=== PATIENT | female | born 1945 | race Caucasian/White ===

== ENCOUNTER → 2017-02-05 | Outpatient (CLI) | payer MEDICARE, BC ==
[~2017-02-05] MED LIST: ACET500T67 PO; ALBU18HF2 INH; ARFO15VI3 AEROSOL; ASPI-558 PO; BUSP15TA3 PO; DOCU-118 PO; GABA-338 PO; LISI-114 PO; METO-104 PO; NITR0.4T38 SL; PRAV40TA46 PO; RANI-198 PO; [UNRECOGNIZED DRUG - OTHER] PO
== END ==
LOC: WC.BC 13:44
PROVIDERS: ATTEND Internal Medicine
DX: N64.59 Other signs and symptoms in breast (principal); R92.8 Other abnormal and inconclusive findings on diagnostic imaging of breast
CPT/HCPCS: G0206; G0279

== ENCOUNTER → 2017-02-17 | Outpatient (CLI) | payer MEDICARE, BC ==
[~2017-02-17] MED LIST changes: +GADOBUTROL 10mMol/10ml INJECTION IV ONE; +NORMAL SALINE 50 ML IV ONE; +SALINE FLUSH 10ml SYRINGE ONE
--- NOTE | 2017-02-18 08:33 | DI ---
Indication: ITS.REASON: R42 VERTIGO; R51 MOORE PROCEDURE: MRA NECK W/WO CONTRAST: Comparison: None Technique: MRA imaging of the neck with and without contrast was acquired. Maximum intensity projection (MIP) reformatted images were produced. Contrast: 10 mL Gadavist Findings: The carotid bifurcations are widely patent bilaterally with normal flow-related enhancement within the common carotid, internal carotid, and external carotid arteries. The vertebral arteries are normal in size without evidence of significant stenosis. Left vertebral artery is slightly dominant. Impression: Unremarkable MRA of the neck with and without contrast. No stenosis by NASCET criteria. .
--- NOTE | 2017-02-18 16:33 | DI ---
Indication: ITS.REASON: R42 VERTIGO; R51 MOORE PROCEDURE: MRI BRAIN W/WO CONTRAST: And MRA head without contrast Encounter: Initial Comparison: None Technique: Multiplanar, multisequence, MR imaging of the head with and without contrast was acquired. MRA imaging of the head without contrast was acquired. Maximum intensity projection (MIP) reformatted images were produced. 3-dimensional volume rendered imaging of the false pass of [place] was performed by the technologist on a dedicated workstation. Contrast: 10 mL of Gadavist Findings: Mild motion artifact on some of the sequences. MRI head: Mild generalized atrophy. Extra-axial CSF collection in the right middle cranial fossa measuring 3.2 x 1.8 cm on axial image #8 consistent with an arachnoid cyst. Prominent perivascular spaces noted in both basal ganglia, left greater than right. The ventricles are of normal size, shape, and contour for the patient's age. There are small nonspecific punctate areas of T2-weighted and T2 FLAIR weighted signal abnormality in the deep frontoparietal white matter that most likely represent small vessel ischemic disease. This is of a degree that is considered to be normal for the patient's age. The brain stem, cerebellum, and cerebral hemispheres otherwise have a normal morphologic appearance as well as MR signal intensity on all pulse sequences. Following intravenous administration of contrast, no areas of abnormal enhancement are evident. There are no areas of restricted diffusion on diffusion weighted imaging to suggest an acute infarct. There is no evidence of an intracranial mass lesion, intracranial hemorrhage, or hydrocephalus. The visualized portions of the orbits, calvarium, paranasal sinuses, and skull base demonstrate no significant abnormality. MRA head: The intracranial portions of the vertebral arteries, internal carotid arteries, and their major branches show no significant stenosis or other vascular anomaly. No aneurysms or vascular malformations are evident. Impression: 1. MRI head: Small right middle cranial fossa arachnoid cyst, otherwise unremarkable appearance of the brain for age. 2. MRA head: No evidence of aneurysm or flow-limiting arterial stenosis. .
== END ==
LOC: IMA 16:24
PROVIDERS: ATTEND Internal Medicine
DX: G93.0 Cerebral cysts (principal); R42 Dizziness and giddiness; R51 Headache
CPT/HCPCS: 70544; 70549; 70553; A9585; J7050

== ENCOUNTER 2017-03-28 15:29 | Emergency (ER) | payer MEDICARE, BC ==
[~2017-03-28] VITALS: Ht 162.6 cm; Wt 80.0 kg
[~2017-03-28 15:29] MED LIST changes: -GADOBUTROL 10mMol/10ml INJECTION IV ONE; -NORMAL SALINE 50 ML IV ONE; -SALINE FLUSH 10ml SYRINGE ONE
--- OUTSIDE RECORDS SUMMARY | 2017-03-28 15:33 | XMS REPORT ---
Author Author Brian Gibbons Organization [employer] Address Unknown Phone Unavailable Care Team Providers Care Contract Modeler Name Role Phone Brian Gibbons CP Unavailable Allergies No Known Allergies Problems Problem Type Condition Code Onset Dates Condition Status Problem Coronary atherosclerosis of [place] coronary artery 414.01 Active Problem Other and unspecified hyperlipidemia 272.4 Active Problem Mixed hyperlipidemia E78.2 Active Problem Other hyperlipidemia E78.4 Active Problem Atherosclerotic heart disease of [place] coronary artery without angina pectoris I25.10 Active Problem Essential (primary) hypertension I10 Active Medications Medication Code System Code Instructions Start Date End Date Status Dosage Ventolin HFA [facility] [address]-99 108 (90 Base) MCG/ACT Inhalation twice a day as needed Nov 30, 2015 2 puffs as needed Results No Known Results Summary Purpose eClinicalWorks Submission
--- OUTSIDE RECORDS SUMMARY | 2017-03-28 15:33 | XMS REPORT | Referral Summary ---
Author Author [facility] Organization [facility] Address Unknown Phone Unavailable Care Team Providers Care Waiter/Waitress Bar Name Role Phone Stephanie Leggett Primary Care Physician [phone] Encounter VC Date(s): 04/20/15 - 04/20/15 [facility] [address], [address] [address] Discharge Diagnosis: Obstructive sleep apnea Discharge Disposition: 01-Home or Self Care Attending Physician: Magdaleno Farmer MD Admitting Physician: Magdaleno Farmer MD Vital Signs Most recent to 1 oldest [Reference Range]: Peripheral Pulse 69 bpm Rate [60-100 bpm] (04/20/15 9:59 AM) Blood Pressure 118/72 mmHg [90-140/60-90 mmHg] (04/20/15 9:59 AM) SpO2 94 % (04/20/15 9:59 AM) Problem List Condition Effective Dates Status Health Status Informant Dermatophytosis of Active nail(Confirmed)1 Morbid Active patient obesity(Confirmed) Obstructive sleep Active apnea(Confirmed) Pain in Active limb(Confirmed)2 Restless leg Active syndrome(Confirmed) 1see conversion document. 2see conversion document. Allergies, Adverse Reactions, Alerts No Known Medication Allergies Medications acetaminophen 325 mg, Oral, Daily, 0 Refill(s) Start Date: 04/15/14 Status: Ordered albuterol 0.083 %, use daily as needed for shortness of breath, 0 Refill(s) Start Date: 04/25/14 Status: Ordered Aspir 81 81 mg, Oral, Daily, 0 Refill(s) Start Date: 04/15/14 Status: Ordered Brovana 15 mcg/2 mL inhalation solution 1 Each, NEB, BID, # 60 Each, 0 Refill(s) Start Date: 04/25/14 Status: Ordered budesonide 0.5 mg/2 mL inhalation suspension 2 mL, NEB, BID, # 120 mL, 0 Refill(s) Start Date: 04/25/14 Status: Ordered busPIRone 15 mg, Oral, Daily, 0 Refill(s) Start Date: 04/15/14 Status: Ordered citalopram 20 mg oral tablet tabs, Oral, Daily, 0 Refill(s) Start Date: 09/01/14 Status: Ordered Colace 50 mg, Oral, TID, 0 Refill(s) Start Date: 04/15/14 Status: Ordered CPAP Machine (DME) See Instructions, # 1 Each, 0 Refill(s), Supply Start Date: 04/15/14 Status: Ordered cyanocobalamin 1,00 mcg/mL inject 0.1 Milliliter every month, 0 Refill(s) Start Date: 04/15/14 Status: Ordered gabapentin 300 mg oral capsule 1 caps, Oral, Daily, 0 Refill(s) Start Date: 04/15/14 Status: Ordered Home Oxygen (DME) DME Item O2@2LPM at bedtime., See Instructions, # 1 Each, 0 Refill(s), Supply Start Date: 07/21/14 Status: Ordered lisinopril 5 mg oral tablet 1 tabs, Oral, Daily, 0 Refill(s) Start Date: 04/15/14 Status: Ordered metoprolol succinate 100 mg, Oral, Daily, 0 Refill(s) Start Date: 04/15/14 Status: Ordered nitroglycerin 0.4 mg sublingual tablet 1 tabs, SubLingual, q5min, as needed for chest pain, # 100 tabs, 0 Refill(s) Start Date: 04/15/14 Status: Ordered Non-Formulary Med calcio madeleine 500mg take 1 BID, 0 Refill(s) Start Date: 04/15/14 Status: Ordered pravastatin 40 mg oral tablet 1 tabs, Oral, Daily, # 30 tabs, 0 Refill(s) Start Date: 04/15/14 Status: Ordered Probiotic Formula 1 caps, Oral, Daily, 0 Refill(s) Start Date: 04/15/14 Status: Ordered ranitidine 300 mg oral tablet tabs, Oral, BID, 0 Refill(s) Start Date: 04/15/14 Status: Ordered Requip See Instructions, 1 mg TID and 2 mg at bedtime., 0 Refill(s) Start Date: 04/15/14 Status: Ordered Vitamin B Complex oral tablet 1 tabs, Oral, BID, 0 Refill(s) Start Date: 04/15/14 Status: Ordered Vitamin D with Minerals oral tablet 1 tabs, Oral, Daily, # 30 tabs, 0 Refill(s) Start Date: 09/01/14 Status: Ordered Results No data available for this section Immunizations Vaccine Date Refusal Reason hepatitis A adult vaccine 02/19/01 hepatitis A adult vaccine 08/22/00 Procedures No data available for this section Social History Social History Type Response Smoking Status Former smoker; Type: Cigarettes; Tobacco use per day: 1 Pack ; Number of years: 30 Assessment and Plan Extracted from: Title: Office Visit Note Author: Magdaleno Farmer MD Date: 04/20/15 Assessment/Plan Obstructive sleep apnea Impression: Obstructive sleep apnea syndrome, doing well on current pressure of 9 cm. The patient has no significant hypoxemia at this level supplemental oxygen is not indicated based on her night in the sleep laboratory. Plan: We reviewed her study, as well as her compliance download. She will continue CPAP at current level. At her request, an order to discontinue oxygen is written. She will return in a year, sooner if need be. Referrals to Other Providers Referred by: Magdaleno Farmer MD
--- OUTSIDE RECORDS SUMMARY | 2017-03-28 15:33 | XMS REPORT ---
Author Author Brian Gibbons Organization [employer] Address Unknown Phone Unavailable Care Team Providers Care Cruller Maker Machine Name Role Phone Brian Gibbons CP Unavailable Allergies, Adverse Reactions, Alerts Substance Reaction Event Type Asmax inhalor Flu like symptoms nausea dizziness Non Drug Allergy Problems Problem Type Condition Code Onset Dates Condition Status Problem Other hyperlipidemia E78.4 Active Problem Atherosclerotic heart disease of [place] coronary artery without angina pectoris I25.10 Active Problem Essential (primary) hypertension I10 Active Problem Hyperlipidemia, unspecified E78.5 Active Problem Major depressive disorder, single episode, unspecified F32.9 Active Problem Restless legs syndrome G25.81 Active Problem Coronary atherosclerosis of [place] coronary artery 414.01 Active Problem Other and unspecified hyperlipidemia 272.4 Active Problem Chronic obstructive pulmonary disease, unspecified J44.9 Active Problem Mixed hyperlipidemia E78.2 Active Assessment Inconclusive mammogram R92.2 Active Assessment Benign paroxysmal vertigo, unspecified ear H81.10 Active Assessment Restless legs syndrome G25.81 Active Assessment Other chest pain R07.89 Active Assessment Encounter for immunization Z23 Active Assessment Atherosclerotic heart disease of [place] coronary artery without angina pectoris I25.10 Active Medications Medication Code System Code Instructions Start Date End Date Status Dosage BuSpar NDC 0 15 mg orally Twice every day 1 Citalopram Hydrobromide [facility] [address]-98 40 MG Orally Once a day 1 tablet Calcium + D [facility] [address]-19 600-200 MG-UNIT Orally Once a day 3 Tablet with food Gabapentin [facility] [address]-00 300 MG Orally daily 1 capsule Brovana [facility] [address]-06 15 MCG/2ML Inhalation Twice a day 2 ml Lisinopril [facility] [address]-12 5 MG Orally Once a day 1 tablet Meclizine HCl [facility] [address]-04 25 MG Orally every 12 hours Sep 11, 2016 1 capsule as needed for vertigo symptoms. Metoprolol Succinate ER [facility] [address]-94 100 MG Orally Once a day 1 tablet Albuterol Sulfate HFA [facility] [address]-54 108 (90 Base) MCG/ACT Inhalation every 4 hrs 2 puffs as needed Colace [facility] [address]-98 50 MG Orally Once a day 2 capsule as needed Ranitidine HCl [facility] [address]-02 300 MG Orally Twice a day Sep 13, 2015 1 tablet Requip [facility] [address]-25 2 MG Orally Three times a day 1 tablet Aspir-81 [facility] [address]-65 81 MG Orally Once a day 1 tablet Procedures Procedure Coding System Code Date OFFICE VISIT, EST-LOW COMPLEXITY (15 MIN.) CPT-4 38008 Sep 11, 2016 [facility] visit Established Patient CPT-4 G0467 Sep 11, 2016 Vital Signs Date/Time: Sep 11, 2016 Temperature 98.2 F Height 65 in Weight 182 lbs Blood Pressure Diastolic 80 mm Hg Blood Pressure Systolic 122 mm Hg Cardiac Monitoring Heart Rate 67 /min BMI 30.28 Index Oximetry 97 % Respiratory Rate 16 /min Results No Known Results Summary Purpose eClinicalWorks Submission
--- OUTSIDE RECORDS SUMMARY | 2017-03-28 15:33 | XMS REPORT ---
Author Author Brian Gibbons Organization [employer] Address Unknown Phone Unavailable Care Team Providers Care Aerospace Project Manager Name Role Phone Brian Gibbons CP Unavailable Allergies No Known Allergies Problems Problem Type Condition Code Onset Dates Condition Status Problem Essential (primary) hypertension I10 Active Problem Other hyperlipidemia E78.4 Active Problem Major depressive disorder, single episode, unspecified F32.9 Active Problem Chronic obstructive pulmonary disease, unspecified J44.9 Active Problem Hyperlipidemia, unspecified E78.5 Active Problem Other and unspecified hyperlipidemia 272.4 Active Problem Atherosclerotic heart disease of [place] coronary artery without angina pectoris I25.10 Active Problem Mixed hyperlipidemia E78.2 Active Problem Coronary atherosclerosis of [place] coronary artery 414.01 Active Medications No Known Medications Results No Known Results Summary Purpose eClinicalWorks Submission
--- OUTSIDE RECORDS SUMMARY | 2017-03-28 15:33 | XMS REPORT | Referral Summary ---
Author Author [facility] Organization [facility] Address Unknown Phone Unavailable Care Team Providers Care Flange Machine Operator Name Role Phone Stephanie Leggett Primary Care Physician [phone] Encounter VC Date(s): 04/06/15 - 04/06/15 [facility] [address], [address] [address] Discharge Disposition: 01-Home or Self Care Attending Physician: Magdaleno Farmer MD Admitting Physician: Magdaleno Farmer MD Referring Physician: Jann Leggett APRN Vital Signs No data available for this section Problem List Condition Effective Dates Status Health [...] tabs, Oral, BID, 0 Refill(s) Start Date: 6/6/14 Status: Ordered Vitamin D with Minerals oral [...] 30 Assessment and Plan Extracted from: Title: CPAP adjust pressure to 9cm Author: Siria Fajardo BLACK BELT Date: 04/06/[address] Farmer pressure change per verbal order/ Dr Farmer patient has an S10 cpap
--- OUTSIDE RECORDS SUMMARY | 2017-03-28 15:33 | XMS REPORT | Continuity of Care Document ---
Author Author [facility] Organization [facility] Address Unknown Phone Unavailable Allergies Medications Problems Procedures Results Encounters ACCT No. Visit Date/Time Discharge Status Pt. Type Provider Facility Loc./Unit Complaint [id number] 11/22/2013 13:59:00 11/22/2013 23 :59:59 [facility] Outpatient
--- OUTSIDE RECORDS SUMMARY | 2017-03-28 15:33 | XMS REPORT ---
Author Author Carmelina Lara [facility] eClinicalWorks Address Unknown Phone Unavailable Care Team Providers Care Glass Smoother Name Role Phone Carmelina Lara CP Unavailable Allergies No Known Allergies Problems Problem Type Condition Code Onset Dates Condition Status Problem Other and unspecified hyperlipidemia 272.4 Active Problem Atherosclerotic heart disease of [place] coronary artery without angina pectoris I25.10 Active Problem Coronary atherosclerosis of [place] coronary artery 414.01 Active Problem Essential (primary) hypertension I10 Active Problem Other hyperlipidemia E78.4 Active Medications Medication Code System Code Instructions Start Date End Date Status Dosage Metoprolol Succinate ER [facility] [address]-04 100 MG Orally Once a day 1 tablet Results No Known Results Summary Purpose eClinicalWorks Submission
--- OUTSIDE RECORDS SUMMARY | 2017-03-28 15:33 | XMS REPORT | Referral Summary ---
Author Author [facility] Organization [facility] Address Unknown Phone Unavailable Care Team Providers Care Contracts Advisor Name Role Phone BenitaScotty montero Primary Care Physician [phone] Encounter VC Date(s): 12/02/16 - 12/02/16 [facility] [address] [place] [address] Discharge Disposition: 01-Home or Self Care Attending Physician: Jaxon Bartlett MD, D, ABSM Vital Signs No data available for this section Problem List Condition Effective Dates Status Health Status Informant Anxiety(Confirmed) Active IBS (irritable bowel Active syndrome)(Confirmed) Dermatophytosis of Active nail(Confirmed)1 GERD Active (gastroesophageal reflux disease)(Confirmed) Myocardial 2009 Active infarct(Confirmed) Depression(Confirmed Active ) Morbid Active patient obesity(Confirmed) Obstructive sleep Active apnea(Confirmed) Pain in Active limb(Confirmed)2 Restless leg Active syndrome(Confirmed) 1see conversion document. 2see conversion document. Allergies, Adverse Reactions, Alerts Substance Reaction Severity Status Asmanex HFA nausea, dizziness, leg pain Active Medications acetaminophen 325 mg, Oral, Daily, 0 [...] No data available for this section Immunizations Given and Recorded Vaccine Date Status Refusal Reason hepatitis A adult vaccine 02/19/01 Recorded hepatitis A adult vaccine 08/22/00 Recorded Procedures Procedure Date Related Diagnosis Body Site Colonoscopy normal1 06/24/16 Hx of cardiac catheterization2 2008 Appendectomy 1Sigmoid diverticulosis. Will not need to repeat due to advancing age 2with stents Social History Social History Type Response Smoking Status Former smoker; Type: Cigarettes; Tobacco use per day: 1 Pack ; Number of years: 30 Assessment and Plan No data available for this section
--- OUTSIDE RECORDS SUMMARY | 2017-03-28 15:33 | XMS REPORT ---
Author Author Carmelina Lara [facility] eClinicalWorks Address Unknown Phone Unavailable Care Team Providers Care Customs Guard Name Role Phone Carmelina Lara CP Unavailable Allergies No Known Allergies Problems Problem Type Condition ICD-9 Code Onset Dates Condition Status Problem Unspecified essential hypertension 401.9 Active Problem Other and unspecified hyperlipidemia 272.4 Active Problem Coronary atherosclerosis of [place] coronary artery 414.01 Active Medications No Known Medications Results No Known Results Summary Purpose eClinicalWorks Submission
--- OUTSIDE RECORDS SUMMARY | 2017-03-28 15:34 | XMS REPORT ---
Author Author Carmelina Lara [facility] e[employer] Address Unknown Phone Unavailable Care Team Providers Care Warehouse Shipping Supervisor Name Role Phone Carmelina Lara CP Unavailable Allergies No Known Allergies Problems Problem Type Condition ICD-9 Code Onset Dates Condition Status Problem Unspecified essential hypertension 401.9 Active Problem Other and unspecified hyperlipidemia 272.4 Active Problem Coronary atherosclerosis of [place] coronary artery 414.01 Active Medications No Known Medications Results No Known Results Summary Purpose eClinicalWorks Submission
--- OUTSIDE RECORDS SUMMARY | 2017-03-28 15:34 | XMS REPORT ---
Author Author Brian Gibbons Organization [employer] Address Unknown Phone Unavailable Care Team Providers Care Chief Environmental Commitment Officer Name Role Phone Brian Gibbons CP Unavailable Allergies, Adverse Reactions, Alerts Substance Reaction Event Type N.K.D.A. Info Not Available Non Drug Allergy Problems Problem Type Condition Code Onset Dates Condition Status Assessment Insect bite (nonvenomous) of lower back and pelvis, initial encounter S30.860A Active Problem Essential (primary) hypertension I10 Active Problem Other hyperlipidemia E78.4 Active Problem Major depressive disorder, single episode, unspecified F32.9 Active Problem Chronic obstructive pulmonary disease, unspecified J44.9 Active Problem Hyperlipidemia, unspecified E78.5 Active Problem Other and unspecified hyperlipidemia 272.4 Active Problem Atherosclerotic heart disease of [place] coronary artery without angina pectoris I25.10 Active Problem Mixed hyperlipidemia E78.2 Active Problem Coronary atherosclerosis of [place] coronary artery 414.01 Active Medications Medication Code System Code Instructions Start Date End Date Status Dosage Citalopram Hydrobromide [facility] [address]-93 40 MG Orally Once a day 1 tablet Metoprolol Succinate ER [facility] [address]-44 100 MG Orally Once a day 1 tablet Ranitidine HCl [facility] [address]-98 300 MG Orally Twice a day Sep 13, [address] [facility] [address]-66 1 % Externally Twice a day Jul 12, 2016 1 application to affected area on back. use small amount. Colace [facility] [address]-66 50 MG Orally Once a day 2 capsule as needed Aspir-[address] [facility] [address]-95 81 MG Orally Once a day [address] [facility] [address]-21 300 MG Orally daily 1 capsule BuSpar ND 0 15 mg orally Twice every day 1 Calcium + D [facility] [address]-87 600-200 MG-UNIT Orally Once a day 4 tablet with food Pravastatin Sodium [facility] [address]-52 40 MG Orally Once a day [address] [facility] [address]-29 2 MG Orally Three times a day 1 tablet Albuterol Sulfate HFA [facility] [address]-21 108 (90 Base) MCG/ACT Inhalation every 4 hrs 2 puffs as needed Lisinopril [facility] [address]-52 5 MG Orally Once a day [address] [facility] [address]-96 15 MCG/2ML Inhalation Twice a day 2 ml Procedures Procedure Coding System Code Date OFFICE VISIT, EST-LOW COMPLEXITY (15 MIN.) CPT-4 19831 Jul 12, 2016 [facility] visit Established Patient CPT-4 G0467 Jul 12, 2016 Vital Signs Date/Time: Jul 12, 2016 Temperature 97.0 F Height 65 in Weight 181.8 lbs Blood Pressure Diastolic 80 mm Hg Blood Pressure Systolic 140 mm Hg Cardiac Monitoring Heart Rate 60 /min BMI 30.25 Index Oximetry 96 % Respiratory Rate 16 /min Results No Known Results Summary Purpose eClinicalWorks Submission
--- OUTSIDE RECORDS SUMMARY | 2017-03-28 15:34 | XMS REPORT | Continuity of Care Document ---
Author Author Zachary Prather DPM, VC Ambulatory Address [address] [facility] [place] [address] Phone Care Team Providers Care Clock Repair Technician Name Role Phone Jann Leggett PP Unavailable Payers Payer name Insurance type Covered alliance party ID Authorization(s) Unknown Problems Condition Effective Dates (start - stop) Clinical Status Dermatophytosis of nail - *Chronic Pain in limb - *Chronic Sleep Apnea, Obstructive - *Poor control Dermatophytosis of nail - *Chronic Pain in limb - *Chronic DERMATOPHYTOSIS OF NAIL - PAIN IN LIMB - Dermatophytosis of nail - *Chronic Pain in limb - *Chronic Sleep Apnea, Obstructive - *Controlled Dermatophytosis of nail - *Chronic Pain in limb - *Chronic Dermatophytosis of nail - *Chronic Pain in limb - *Chronic Dermatophytosis of nail - *Chronic Pain in limb - *Chronic Dermatophytosis of nail - *Chronic Pain in limb - *Chronic Diabetes Mellitus Type 2, Uncomplicated - *Controlled Family History Family Member Diagnosis Age At Onset Status Unknown Social History Social History Element Description Quantity Unknown Allergies, Adverse Reactions, Alerts Substance Reaction Severity Status Unknown Medications Medication Instructions Dosage Effective Dates (start - stop) Status Colace 50 mg capsule take 1 Capsule by oral route 3 times every day as needed 50 MG - Active Vitamin B Complex tablet take 1 by Oral route 2 times every day 0 2011 - Active calcium 500 mg tablet take 1 by Oral route 2 times every day 0 - Active lisinopril 5 mg tablet take 1 tablet (5MG) by oral route every day 5 MG - Active pravastatin 40 mg tablet take 1 tablet (40MG) by oral route every day 40 MG - Active gabapentin 300 mg capsule take 1 capsule (300MG) by oral route 2 times every day 300 MG - Active Vitamin B-12 1,000 mcg/mL injection solution inject 0.1 milliliter (100MCG) by intramuscular route every month 100 MCG - Active ranitidine 300 mg tablet take 1 tablet (300MG) by oral route 2 times every day 300 MG - Active Tylenol 325 mg tablet take 1 by Oral route every day as needed 0 2011 - Active nitroglycerin 0.[address] 1 tablet (0.4MG) by sublingual route at the 1st sign of attack; may repeat every 5 min until relief; if pain persists after 3 tablets in 15 min, prompt medical attention is recommended 0.4 MG - Active Probiotic 10 billion cell capsule take 1 by Oral route every bedtime 0 - Active Aspir-81 81 mg tablet,delayed release take 1 tablet (81MG) by oral route every day 81 MG - Active metoprolol succinate ER 100 mg tablet,extended release 24 hr take 1 tablet ( 100MG) by oral route every day 100 MG - Active inhale 13 CM by Nasal route every bedtime 0 - Active Requip 0.25 mg tablet apply 1 - 2 by Ophthalmic route every day as directed 0 - Active buspirone 15 mg tablet take 1 tablet (15MG) by oral route every day as directed 15 MG - Active Immunizations Vaccine Date Status Comments Unknown Results Test Name Date and Time Measure Units Reference Range Abnormal Flag Comments Unknown Vital Signs Date / Time: Height Weight Pulse Rate Blood Pressure Temperature Unknown Procedures Procedure Date Unknown Encounters Encounter Location Date Patient Visit [facility] New Pod Patient Visit [facility] New Pod Patient Visit [facility] Patient Visit [facility] New Pod Patient Visit Conversion Patient Visit [facility] New Pod Patient [facility] Patient Visit [facility] New Pod Patient Visit [facility] New Pod Patient Visit [facility] New Pod Patient Visit [facility] New Pod Advance Directives Directive Effective Date Unknown
--- OUTSIDE RECORDS SUMMARY | 2017-03-28 15:34 | XMS REPORT ---
Author Author Brian Gibbons Organization eClinical[employer] Address Unknown Phone Unavailable Care Team Providers Care Pruner Name Role Phone Brian Gibbons CP Unavailable Allergies No Known Allergies Problems Problem Type Condition Code Onset Dates Condition Status Problem Coronary atherosclerosis of [place] coronary artery 414.01 Active Problem Other and unspecified hyperlipidemia 272.4 Active Problem Mixed hyperlipidemia E78.2 Active Problem Other hyperlipidemia E78.4 Active Problem Atherosclerotic heart disease of [place] coronary artery without angina pectoris I25.10 Active Problem Essential (primary) hypertension I10 Active Medications No Known Medications Results No Known Results Summary Purpose eClinicalWorks Submission
--- OUTSIDE RECORDS SUMMARY | 2017-03-28 15:34 | XMS REPORT ---
Author Author Carmelina Lara [facility] eClinicalWorks Address Unknown Phone Unavailable Care Team Providers Care Beauty Culture Teacher Name Role Phone Carmelina Lara CP Unavailable Allergies No Known Allergies Problems Problem Type Condition ICD-9 Code Onset Dates Condition Status Assessment Restless legs syndrome [RLS] 333.94 Active Problem Unspecified essential hypertension 401.9 Active Problem Other and unspecified hyperlipidemia 272.4 Active Problem Coronary atherosclerosis of [place] coronary artery 414.01 Active Assessment Anxiety state, unspecified 300.00 Active Assessment Other and unspecified hyperlipidemia 272.4 Active Assessment Coronary atherosclerosis of [place] coronary artery 414.01 Active Assessment Unspecified essential hypertension 401.9 Active Medications No Known Medications Procedures Procedure Coding System Code Date COMPLETE CBC W/AUTO DIFF WBC CPT-4 73415 Aug 02, 2015 COMPREHENSIVE METABOLIC PANEL CPT-4 02381 Aug 02, 2015 Results No Known Results Summary Purpose eClinicalWorks Submission
--- OUTSIDE RECORDS SUMMARY | 2017-03-28 15:34 | XMS REPORT ---
Author Author Carmelina Lara [facility] eClinical[employer] Address Unknown Phone Unavailable Care Team Providers Care Feltmaker And Weigher Name Role Phone Carmelina Lara CP Unavailable Allergies No Known Allergies Problems Problem Type Condition Code Onset Dates Condition Status Problem Other and unspecified hyperlipidemia 272.4 Active Problem Atherosclerotic heart disease of [place] coronary artery without angina pectoris I25.10 Active Problem Coronary atherosclerosis of [place] coronary artery 414.01 Active Problem Essential (primary) hypertension I10 Active Problem Other hyperlipidemia E78.4 Active Medications Medication Code System Code Instructions Start Date End Date Status Dosage Metoprolol Succinate ER [facility] [address]-44 100 MG Orally Once a day 1 tablet Results No Known Results Summary Purpose eClinicalWorks Submission
--- OUTSIDE RECORDS SUMMARY | 2017-03-28 15:34 | XMS REPORT ---
Author Author Brian Gibbons Organization eClinical[employer] Address Unknown Phone Unavailable Care Team Providers Care Industrial Conveyor Belt Repairer Name Role Phone Brian Gibbons CP Unavailable Allergies No Known Allergies Problems Problem Type Condition Code Onset Dates Condition Status Assessment Dizziness and giddiness R42 Active Problem Essential (primary) hypertension I10 Active Problem Other hyperlipidemia E78.4 Active Assessment Hyperlipidemia, unspecified E78.5 Active Assessment Essential (primary) hypertension I10 Active Problem Major depressive disorder, single episode, unspecified F32.9 Active Problem Chronic obstructive pulmonary disease, unspecified J44.9 Active Problem Hyperlipidemia, unspecified E78.5 Active Problem Other and unspecified hyperlipidemia 272.4 Active Problem Atherosclerotic heart disease of [place] coronary artery without angina pectoris I25.10 Active Problem Mixed hyperlipidemia E78.2 Active Problem Coronary atherosclerosis of [place] coronary artery 414.01 Active Medications Medication Code System Code Instructions Start Date End Date Status Dosage Pravastatin Sodium [facility] [address]-76 40 MG Orally Once a day 1 tablet Ventolin HFA [facility] [address]-11 108 (90 Base) MCG/ACT Inhalation twice a day as needed Nov 30, 2015 2 puffs as needed Requip [facility] [address]-72 2 MG Orally Three times a day 1 tablet Citalopram Hydrobromide [facility] [address]-95 40 MG Orally Once a day 1 tablet Asmanex 120 Metered Doses [facility] [address]-09 220 MCG/INH Inhalation Once a day April 03, 2016 Jul 30, 2016 1 puff in the evening Calcium + D [facility] [address]-22 600-200 MG-UNIT Orally Once a day 4 tablet with food Gabapentin [facility] [address]-49 300 MG Orally daily 1 capsule Ranitidine HCl [facility] [address]-97 300 MG Orally Twice a day Sep 13, 2015 1 tablet Metoprolol Succinate ER [facility] [address]-62 100 MG Orally Once a day 1 tablet Albuterol Sulfate HFA [facility] [address]-46 108 (90 Base) MCG/ACT Inhalation every 4 hrs 2 puffs as needed Brovana [facility] [address]-74 15 MCG/2ML Inhalation Twice a day 2 ml BuSpar NDC 0 15 mg orally Twice every day 1 Colace [facility] [address]-03 50 MG Orally Once a day 2 capsule as needed Aspir-81 [facility] [address]-51 81 MG Orally Once a day 1 tablet Lisinopril [facility] [address]-73 5 MG Orally Once a day 1 tablet Procedures Procedure Coding System Code Date URINALYSIS WITH MICROSCOPIC CPT-4 81521 June 03, 2016 IH CMP CPT-4 84903 June 03, 2016 COMPLETE CBC W/AUTO DIFF WBC CPT-4 31656 June 03, 2016 LIPID PANEL CPT-4 13327 June 03, 2016 Results No Known Results Summary Purpose eClinicalWorks Submission
--- OUTSIDE RECORDS SUMMARY | 2017-03-28 15:34 | XMS REPORT ---
Author Author Brian Gibbons Organization eClinicalWorks Address Unknown Phone Unavailable Care Team Providers Care Investment Officer Name Role Phone Brian Gibbons CP Unavailable Allergies, Adverse Reactions, Alerts Substance Reaction Event Type Asmax inhalor Flu like symptoms nausea dizziness Non Drug Allergy Problems Problem Type Condition Code Onset Dates Condition Status Assessment Inconclusive mammogram R92.2 Active Problem Essential (primary) hypertension I10 Active Problem Other hyperlipidemia E78.4 Active Problem Major depressive disorder, single episode, unspecified F32.9 Active Problem Chronic obstructive pulmonary disease, unspecified J44.9 Active Problem Hyperlipidemia, unspecified E78.5 Active Problem Other and unspecified hyperlipidemia 272.4 Active Problem Atherosclerotic heart disease of [place] coronary artery without angina pectoris I25.10 Active Problem Mixed hyperlipidemia E78.2 Active Problem Coronary atherosclerosis of [place] coronary artery 414.01 Active Medications Medication Code System Code Instructions Start Date End Date Status Dosage Citalopram Hydrobromide [facility] [address]-98 40 MG Orally Once a day 1 tablet BuSpar ND 0 15 mg orally Twice every day 1 Metoprolol Succinate ER [facility] [address]-75 100 MG Orally Once a day 1 tablet Gabapentin [facility] [address]-08 300 MG Orally daily 1 capsule Colace [facility] [address]-73 50 MG Orally Once a day 2 capsule as needed Aspir-81 [facility] [address]-65 81 MG Orally Once a day 1 tablet Lisinopril [facility] [address]-11 5 MG Orally Once a day 1 tablet Brovana [facility] [address]-94 15 MCG/2ML Inhalation Twice a day 2 ml Calcium + D [facility] [address]-41 600-200 MG-UNIT Orally Once a day 4 tablet with food Requip [facility] [address]-73 2 MG Orally Three times a day 1 tablet Ranitidine HCl [facility] [address]-09 300 MG Orally Twice a day Sep 13, 2015 1 tablet Albuterol Sulfate HFA [facility] [address]-28 108 (90 Base) MCG/ACT Inhalation every 4 hrs 2 puffs as needed Procedures Procedure Coding System Code Date OFFICE VISIT, EST-LOW COMPLEXITY (15 MIN.) CPT-4 88881 Jul 24, 2016 [facility] visit Established Patient CPT-4 G0467 Jul 24, 2016 Vital Signs Date/Time: Jul 24, 2016 Temperature 97.7 F Height 65 in Weight 182.7 lbs Blood Pressure Diastolic 64 mm Hg Blood Pressure Systolic 128 mm Hg Cardiac Monitoring Heart Rate 62 /min BMI 30.40 Index Oximetry 98 % Results No Known Results Summary Purpose eClinicalWorks Submission
--- OUTSIDE RECORDS SUMMARY | 2017-03-28 15:34 | XMS REPORT ---
Author Author Brian Gibbons Organization eClinicalWorks Address Unknown Phone Unavailable Care Team Providers Care Laboratory Technical Specialist Name Role Phone Brian Gibbons CP Unavailable [...] 272.4 Active Problem Atherosclerotic heart disease of [place] coronary artery without angina pectoris I25.10 Active Problem Mixed hyperlipidemia E78.2 Active Problem Coronary atherosclerosis of [place] coronary artery 414.01 Active Medications No Known Medications Results No Known Results Summary Purpose eClinicalWorks Submission
--- OUTSIDE RECORDS SUMMARY | 2017-03-28 15:34 | XMS REPORT | Referral Summary ---
Author Organization Unknown Address Unknown Phone Unavailable Care Team Providers Care Dance Coach Name Role Phone Stephanie Leggett Primary Care Physician [phone] Encounter VC Date(s): 12/22/14 - 12/22/14 [facility] [place] [address], [facility] [address] [place], [place] [address] Discharge Disposition: Home or Self Care Attending Physician: Abby Pack Admitting Physician: Abby Pack Referring Physician: Jann Leggett APRN Vital Signs Most recent to 1 oldest [Reference Range]: Peripheral Pulse 61 bpm Rate [60-100 bpm] (12/22/14 1:50 PM) Blood Pressure 140/76 mmHg [90-140/60-90 mmHg] (12/22/14 1:50 PM) Most recent to 1 oldest [Reference Range]: SpO2 99 % (12/22/14 1:50 PM) Problem List Condition Effective Dates Status Health Status Informant Dermatophytosis of Active nail(Confirmed)1 Morbid Active patient obesity(Confirmed) Obstructive sleep Active apnea(Confirmed) Pain in Active limb(Confirmed)2 1see conversion document. 2see conversion document. Allergies, Adverse Reactions, Alerts No Known Medication Allergies Medications acetaminophen 325 mg, Oral, Daily, 0 Refill(s) Start Date: 04/15/14 Status: Ordered albuterol 0.083 %, use daily as needed for shortness of breath, 0 Refill(s) Special Instructions: use daily as needed for shortness of breath Start Date: 04/25/14 Status: Ordered Aspir 81 [...] inject 0.1 Milliliter every month, 0 Refill(s) Special Instructions: 1,00 mcg/mL inject 0.1 Milliliter every month Start Date: 04/15/14 Status: Ordered gabapentin 300 mg oral capsule 1 caps, Oral, BID, 0 Refill(s) Start Date: 04/15/14 Status: Ordered Home Oxygen (DME) DME Item O2@2LPM at bedtime., See Instructions, # 1 Each, 0 Refill(s), Supply Special Instructions: O2@2LPM at bedtime. Start Date: 07/21/14 Status: Ordered lisinopril 5 [...] madeleine 500mg take 1 BID, 0 Refill(s) Special Instructions: calcio madeleine 500mg take 1 BID Start Date: 04/15/14 Status: Ordered pravastatin 40 [...] and 2 mg at bedtime., 0 Refill(s) Special Instructions: 1 mg TID and 2 mg at bedtime. Start Date: 04/15/14 Status: Ordered Vitamin B [...]
--- OUTSIDE RECORDS SUMMARY | 2017-03-28 15:34 | XMS REPORT ---
Author Carmelina Be [facility] eClinicalWorks Address Unknown Phone Unavailable Care Team Providers Care Mechanical Energy Engineer Name Role Phone Carmelina Lara CP Unavailable Allergies, Adverse Reactions, Alerts Substance Reaction Event Type N.K.D.A. Info Not Available Non Drug Allergy Problems Problem Type Condition Code Onset Dates Condition Status Problem Other and unspecified hyperlipidemia 272.4 Active Problem Atherosclerotic heart disease of [place] coronary artery without angina pectoris I25.10 Active Problem Coronary atherosclerosis of [place] coronary artery 414.01 Active Assessment Atherosclerotic heart disease of [place] coronary artery without angina pectoris I25.10 Active Assessment Essential (primary) hypertension I10 Active Problem Essential (primary) hypertension I10 Active Problem Other hyperlipidemia E78.4 Active Medications Medication Code System Code Instructions Start Date End Date Status Dosage Colace [facility] [address]-35 50 MG Orally Once a day 2 capsule as needed Brovana [facility] [address]-30 15 MCG/2ML Inhalation Twice a day 2 ml Gabapentin [facility] [address]-65 300 MG Orally daily 1 capsule Metoprolol Tartrate [facility] [address]-20 100 MG Orally Once a day 1 tablet Citalopram Hydrobromide [facility] [address]-79 40 MG Orally Once a day 0.5 tablet Calcium + D [facility] [address]-76 600-200 MG-UNIT Orally Once a day 4 tablet with food Aspir-81 [facility] [address]-48 81 MG Orally Once a day 1 tablet Lisinopril [facility] [address]-56 5 MG Orally Once a day 1 tablet Requip [facility] [address]-19 2 MG Orally Three times a day 1 tablet 1 to 3 hours before bedtime BuSpar [facility] 0 15 mg Twice every day not defined Pravastatin Sodium [facility] [address]-66 40 MG Orally Once a day 1 tablet Procedures Procedure Coding System Code Date OFFICE VISIT, ASSOCIATE ORACLE RETAIL-BRIEF (10 MIN.) CPT-4 94391 Aug 11, 2015 [facility] visit New Patient CPT-4 G0466 Aug 11, 2015 Vital Signs Date/Time: Aug 11, 2015 Height 65 in Weight 170 lbs Temperature 97.8 F Blood Pressure Diastolic 64 mm Hg Blood Pressure Systolic 112 mm Hg Cardiac Monitoring Heart Rate 72 /min BMI 28.29 Index Oximetry 96 % Respiratory Rate 16 /min Results No Known Results Summary Purpose eClinicalWorks Submission
--- OUTSIDE RECORDS SUMMARY | 2017-03-28 15:34 | XMS REPORT ---
Author Author Brian Gibbons Organization eClinicalWorks Address Unknown Phone Unavailable Care Team Providers Care Sighter Name Role Phone Brian Gibbons CP Unavailable Allergies No Known Allergies Problems Problem Type Condition Code Onset Dates Condition Status Problem Other and unspecified hyperlipidemia 272.4 Active Problem Atherosclerotic heart disease of [place] coronary artery without angina pectoris I25.10 Active Problem Coronary atherosclerosis of [place] coronary artery 414.01 Active Problem Essential (primary) hypertension I10 Active Problem Other hyperlipidemia E78.4 Active Medications Medication Code System Code Instructions Start Date End Date Status Dosage Metoprolol Succinate ER [facility] [address]-97 100 MG Orally Once a day 1 tablet Results No Known Results Summary Purpose eClinicalWorks Submission
--- OUTSIDE RECORDS SUMMARY | 2017-03-28 15:34 | XMS REPORT ---
Author Author Brian Gibbons Organization eClinicalWorks Address Unknown Phone Unavailable Care Team Providers Care Director Of Digital Platforms Name Role Phone Brian Gibbons CP Unavailable [...] 272.4 Active Problem Atherosclerotic heart disease of [place] coronary artery without angina pectoris I25.10 Active Problem Mixed hyperlipidemia E78.2 Active Problem Coronary atherosclerosis of [place] coronary artery 414.01 Active Medications No Known Medications Results No Known Results Summary Purpose eClinicalWorks Submission
--- OUTSIDE RECORDS SUMMARY | 2017-03-28 15:34 | XMS REPORT | Referral Summary ---
Author Author [facility] Organization [facility] Address Unknown Phone Unavailable Care Team Providers Care Electronic Organ Technician Name Role Phone Stephanie Leggett Primary Care Physician [phone] Encounter Date(s): 03/27/15 - 03/27/15 [facility] [address] [facility], [address] [address] [place] Discharge Diagnosis: Obstructive sleep apnea, adult Discharge Disposition: 01-Home or Self Care Attending Physician: Magdaleno Farmer MD Admitting Physician: Magdaleno Farmer MD Vital Signs No data available for this [...]
--- OUTSIDE RECORDS SUMMARY | 2017-03-28 15:34 | XMS REPORT ---
Author Author Brian Gibbons Organization eClinicalWorks Address Unknown Phone Unavailable Care Team Providers Care Food And Beverage Assistant Name Role Phone Brian Gibbons CP Unavailable Allergies, Adverse Reactions, Alerts Substance Reaction Event Type N.K.D.A. Info Not Available Non Drug Allergy Problems Problem Type Condition Code Onset Dates Condition Status Assessment Chronic obstructive pulmonary disease, unspecified J44.9 Active Assessment Restless legs syndrome G25.81 Active Assessment Other constipation K59.09 Active Assessment Encounter for immunization Z23 Active Problem Other and unspecified hyperlipidemia 272.4 Active Problem Atherosclerotic heart disease of [place] coronary artery without angina pectoris I25.10 Active Problem Coronary atherosclerosis of [place] coronary artery 414.01 Active Assessment Mixed hyperlipidemia E78.2 Active Assessment Essential (primary) hypertension I10 Active Problem Essential (primary) hypertension I10 Active Problem Other hyperlipidemia E78.4 Active Medications Medication Code System Code Instructions Start Date End Date Status Dosage Ranitidine HCl [facility] [address]-90 300 MG Orally Twice a day Sep 13, 2015 1 tablet Requip [facility] [address]-98 2 MG Orally Three times a day 1 tablet 1 to 3 hours before bedtime Calcium + D [facility] [address]-18 600-200 MG-UNIT Orally Once a day 4 tablet with food Pravastatin Sodium [facility] [address]-21 40 MG Orally Once a day 1 tablet Metoprolol Succinate ER [facility] [address]-55 100 MG Orally Once a day 1 tablet Gabapentin [facility] [address]-91 300 MG Orally daily 1 capsule Lisinopril [facility] [address]-15 5 MG Orally Once a day 1 tablet Brovana [facility] [address]-46 15 MCG/2ML Inhalation Twice a day 2 ml Colace [facility] [address]-32 50 MG Orally Once a day 2 capsule as needed Albuterol Sulfate HFA [facility] [address]-61 108 (90 Base) MCG/ACT Inhalation every 4 hrs 2 puffs as needed Aspir-81 [facility] [address]-27 81 MG Orally Once a day 1 tablet Procedures Procedure Coding System Code Date FLU VACC PRSV FREE INC ANTIG CPT-4 59524 Sep 20, 2015 ADMINISTRATION, 1ST IMMUNIZATION CPT-4 74384 Sep 20, 2015 OFFICE VISIT, HEALTH EDITOR-LOW COMPLEXITY (30 MIN.) CPT-4 75852 Sep 20, 2015 Vital Signs Date/Time: Sep 20, 2015 Height 65 in Weight 167.0 lbs Temperature 97.7 F Blood Pressure Diastolic 82 mm Hg Blood Pressure Systolic 138 mm Hg Cardiac Monitoring Heart Rate 56 /min BMI 27.79 Index Oximetry 96 % Respiratory Rate 16 /min Results No Known Results Immunizations Vaccine Administration Date Influenza 65 y.o. and older Sep 20, 2015 Summary Purpose eClinicalWorks Submission
--- OUTSIDE RECORDS SUMMARY | 2017-03-28 15:34 | XMS REPORT | Referral Summary ---
Author Author [facility] Organization [facility] Address Unknown Phone Unavailable Care Team Providers Care Research Nurse Practitioner Name Role Phone Scotty Gibbons Primary Care Physician [phone] Encounter VC Date(s): 05/29/16 - 05/29/16 [facility] [address] [place] [address] PATRICK Garcia [id number] Discharge Diagnosis: Rectal bleeding Discharge Disposition: 01-Home or Self Care Attending Physician: Marco Ashford MD Admitting Physician: Marco Ashford MD Referring Physician: Brian Gibbons DO Vital Signs Most recent to 1 oldest [Reference Range]: Temperature Tympanic 36.5 degC [36.6-38.1 degC] *LOW* (05/29/16 2:24 PM) Peripheral Pulse 70 bpm Rate [60-100 bpm] (05/29/16 2:24 PM) Blood Pressure 124/66 mmHg [90-140/60-90 mmHg] (05/29/16 2:24 PM) SpO2 96 % (05/29/16 2:24 PM) Problem List Condition Effective Dates Status [...] 02/19/01 hepatitis A adult vaccine 08/22/00 Procedures Procedure Date Related Diagnosis Body Site Hx of cardiac catheterization1 2008 Appendectomy 1with stents Social History Social History Type Response Smoking Status Former smoker; Type: Cigarettes; Tobacco use per day: 1 Pack ; Number of years: 30 Assessment and Plan Extracted from: Title: Ambulatory Patient Education Author: Marco Ashford MD Date: Family Medicine Gastrointestinal Bleeding Gastrointestinal (GI) bleeding means there is bleeding somewhere along the digestive tract, between the mouth and anus. CAUSES There are many different problems that can cause GI bleeding. Possible causes include: Esophagitis. This is inflammation, irritation, or swelling of the esophagus. Hemorrhoids.These are veins that are full of blood (engorged) in the rectum. They cause pain, inflammation, and may bleed. Anal fissures.These are areas of painful tearing which may bleed. They are often caused by passing hard stool. Diverticulosis.These are pouches that form on the colon over time, with age, and may bleed significantly. Diverticulitis.This is inflammation in areas with diverticulosis. It can cause pain, fever, and bloody stools, although bleeding is rare. Polyps and cancer. Colon cancer often starts out as precancerous polyps. Gastritis and ulcers.Bleeding from the upper gastrointestinal tract ( near the stomach) may travel through the intestines and produce black, sometimes tarry, often bad smelling stools. In certain cases, if the bleeding is fast enough, the stools may not be black, but red. This condition may be life -threatening. SYMPTOMS Vomiting bright red blood or material that looks like coffee grounds. Bloody, black, or tarry stools. DIAGNOSIS Your caregiver may diagnose your condition by taking your history and performing a physical exam. More tests may be needed, including: X-rays and other imaging tests. Esophagogastroduodenoscopy (EGD). This test uses a flexible, lighted tube to look at your esophagus, stomach, and small intestine. Colonoscopy. This test uses a flexible, lighted tube to look at your colon. TREATMENT Treatment depends on the cause of your bleeding. For bleeding from the esophagus, stomach, small intestine, or colon, the caregiver doing your EGD or colonoscopy may be able to stop the bleeding as part of the procedure. Inflammation or infection of the colon can be treated with medicines. Many rectal problems can be treated with creams, suppositories, or warm baths. Surgery is sometimes needed. Blood transfusions are sometimes needed if you have lost a lot of blood. If bleeding is slow, you may be allowed to go home. If there is a lot of bleeding, you will need to stay in the hospital for observation. HOME CARE INSTRUCTIONS Take any medicines exactly as prescribed. Keep your stools soft by eating foods that are high in fiber. These foods include whole grains, legumes, fruits, and vegetables. Prunes (1 to 3 a day) work well for many people. Drink enough fluids to keep your urine clear or pale yellow. SEEK IMMEDIATE MEDICAL CARE IF: Your bleeding increases. You feel lightheaded, weak, or you faint. You have severe cramps in your back or abdomen. You pass large blood clots in your stool. Your problems are getting worse. MAKE SURE YOU: Understand these instructions. Will watch your condition. Will get help right away if you are not doing well or get worse. This information is not intended to replace advice given to you by your health care provider. Make sure you discuss any questions you have with your health care provider. Document Released: 10/24/2001 Document Revised: 10/13/2013 Document Reviewed: [facility] Patient Information 2016 [employer] [facility]. No follow up information was provided. Extracted from: Title: Office Visit Note Author: Marco Ashford MD Date: 05/29/16 Assessment/Plan 1.Rectal bleeding Ordered: Office Visit Level 4 New [address]92 Plan: Colonoscopy I did review the patient's records including an office note performed by her primary care physician from May 01, 2016. I informed the patient that given her history for rectal bleedingas well as the fact that has been more than 15 years since her last endoscopic evaluation of her colonI would recommend that we would proceedwith a colonoscopyfor further evaluation. I informed the patient that she may want to schedule this colonoscopy after her pulmonology visitto make certain that there are no"pulmonary contraindications"to proceed with colonoscopy. Risk of endoscopy was discussed with the patient. Risks include but are not inclusive of bleeding and/or perforation requiring surgery. Patient understood and was tentatively scheduledfollowing her upcoming pulmonology visit.
--- OUTSIDE RECORDS SUMMARY | 2017-03-28 15:34 | XMS REPORT ---
Author Author Brian Gibbons Organization [employer] Address Unknown Phone Unavailable Care Team Providers Care Air And Missile Defense Crewmember Name Role Phone Brian Gibbons CP Unavailable Allergies, Adverse Reactions, Alerts Substance Reaction Event Type N.K.D.A. Info Not Available Non Drug Allergy Problems Problem Type Condition Code Onset Dates Condition Status Assessment Atherosclerotic heart disease of [place] coronary artery without angina pectoris I25.10 Active Problem Essential (primary) hypertension I10 Active Problem Other hyperlipidemia E78.4 Active Problem Major depressive disorder, single episode, unspecified F32.9 Active Problem Chronic obstructive pulmonary disease, unspecified J44.9 Active Problem Hyperlipidemia, unspecified E78.5 Active Problem Other and unspecified hyperlipidemia 272.4 Active Problem Atherosclerotic heart disease of [place] coronary artery without angina pectoris I25.10 Active Problem Mixed hyperlipidemia E78.2 Active Problem Coronary atherosclerosis of [place] coronary artery 414.01 Active Assessment Sleep apnea, unspecified G47.30 Active Assessment Chronic obstructive pulmonary disease, unspecified J44.9 Active Assessment Encounter for screening mammogram for malignant neoplasm of breast Z12.31 Active Assessment Hyperlipidemia, unspecified E78.5 Active Assessment Obstructive sleep apnea (adult) (pediatric) G47.33 Active Assessment Essential (primary) hypertension I10 Active Medications Medication Code System Code Instructions Start Date End Date Status Dosage Colace [facility] [address]-26 50 MG Orally Once a day 2 capsule as needed Calcium + D [facility] [address]-62 600-200 MG-UNIT Orally Once a day 4 tablet with food Brovana [facility] [address]-93 15 MCG/2ML Inhalation Twice a day 2 ml Requip [facility] [address]-62 2 MG Orally Three times a day 1 tablet Pravastatin Sodium [facility] [address]-23 40 MG Orally Once a day 1 tablet Ranitidine HCl [facility] [address]-98 300 MG Orally Twice a day Sep 13, 2015 1 tablet Gabapentin [facility] [address]-03 300 MG Orally daily 1 capsule Aspir-81 [facility] [address]-38 81 MG Orally Once a day 1 tablet Albuterol Sulfate HFA [facility] [address]-62 108 (90 Base) MCG/ACT Inhalation every 4 hrs 2 puffs as needed BuSpar NDC 0 15 mg orally Twice every day 1 Citalopram Hydrobromide [facility] [address]-01 40 MG Orally Once a day 1 tablet Lisinopril [facility] [address]-40 5 MG Orally Once a day 1 tablet Metoprolol Succinate ER [facility] [address]-18 100 MG Orally Once a day 1 tablet Procedures Procedure Coding System Code Date OFFICE VISIT, EST-LOW COMPLEXITY (15 MIN.) CPT-4 36153 Jun 19, 2016 [facility] visit Established Patient CPT-4 G0467 Jun 19, 2016 Vital Signs Date/Time: Jun 19, 2016 Temperature 97.9 F Height 65 in Weight 181.6 lbs Blood Pressure Diastolic 72 mm Hg Blood Pressure Systolic 122 mm Hg Cardiac Monitoring Heart Rate 65 /min BMI 30.22 Index Oximetry 97 % Results No Known Results Summary Purpose [employer] Submission
--- OUTSIDE RECORDS SUMMARY | 2017-03-28 15:34 | XMS REPORT ---
Author Author Brian Gibbons Organization [employer] Address Unknown Phone Unavailable Care Team Providers Care Needle Loom Weaver Name Role Phone Brian Gibbons CP Unavailable Allergies No Known Allergies Problems Problem Type Condition Code Onset Dates Condition Status Problem Coronary atherosclerosis of [place] coronary artery 414.01 Active Problem Other and unspecified hyperlipidemia 272.4 Active Problem Mixed hyperlipidemia E78.2 Active Problem Other hyperlipidemia E78.4 Active Problem Atherosclerotic heart disease of [place] coronary artery without angina pectoris I25.10 Active Problem Essential (primary) hypertension I10 Active Medications Medication Code System Code Instructions Start Date End Date Status Dosage Lisinopril [facility] [address]-70 5 MG Orally Once a day 1 tablet Results No Known Results Summary Purpose [employer] Submission
--- OUTSIDE RECORDS SUMMARY | 2017-03-28 15:34 | XMS REPORT ---
Author Author Brian Gibbons Organization [employer] Address Unknown Phone Unavailable Care Team Providers Care Back End Architect Name Role Phone Brian Gibbons CP Unavailable Allergies No Known Allergies Problems Problem Type Condition Code Onset Dates Condition Status Problem Coronary atherosclerosis of [place] coronary artery 414.01 Active Problem Other and unspecified hyperlipidemia 272.4 Active Problem Mixed hyperlipidemia E78.2 Active Problem Other hyperlipidemia E78.4 Active Problem Atherosclerotic heart disease of [place] coronary artery without angina pectoris I25.10 Active Problem Essential (primary) hypertension I10 Active Medications Medication Code System Code Instructions Start Date End Date Status Dosage Pravastatin Sodium [facility] [address]-18 40 MG Orally Once a day 1 tablet Results No Known Results Summary Purpose [employer] Submission
--- OUTSIDE RECORDS SUMMARY | 2017-03-28 15:34 | XMS REPORT ---
Author Brian Mccarthy Organization [employer] Address Unknown Phone Unavailable Care Team Providers Care Granulator Name Role Phone Brian Gibbons CP Unavailable Allergies No Known Allergies Problems Problem Type Condition Code Onset Dates Condition Status Problem Other and unspecified hyperlipidemia 272.4 Active Problem Atherosclerotic heart disease of [place] coronary artery without angina pectoris I25.10 Active Problem Coronary atherosclerosis of [place] coronary artery 414.01 Active Assessment Encounter for immunization Z23 Active Problem Essential (primary) hypertension I10 Active Problem Other hyperlipidemia E78.4 Active Medications Medication Code System Code Instructions Start Date End Date Status Dosage Calcium + D [facility] [address]-81 600-200 MG-UNIT Orally Once a day 4 tablet with food Lisinopril [facility] [address]-83 5 MG Orally Once a day 1 tablet Ranitidine HCl [facility] [address]-68 300 MG Orally Twice a day Sep 13, 2015 1 tablet Brovana [facility] [address]-54 15 MCG/2ML Inhalation Twice a day 2 ml Albuterol Sulfate HFA [facility] [address]-06 108 (90 Base) MCG/ACT Inhalation every 4 hrs 2 puffs as needed Metoprolol Succinate ER [facility] [address]-22 100 MG Orally Once a day 1 tablet Gabapentin [facility] [address]-84 300 MG Orally daily 1 capsule Aspir-81 [facility] [address]-03 81 MG Orally Once a day 1 tablet Requip [facility] [address]-34 2 MG Orally Three times a day 1 tablet 1 to 3 hours before bedtime Colace [facility] [address]-80 50 MG Orally Once a day 2 capsule as needed Pravastatin Sodium [facility] [address]-76 40 MG Orally Once a day 1 tablet Procedures Procedure Coding System Code Date ADMINISTRATION, 1ST IMMUNIZATION CPT-4 20517 Sep 27, 2015 DUMMY CODE FOR NURSE VISIT CPT-4 DUMMY Sep 27, 2015 PNEUMOCOCOCCAL CONJUGATE VACCINE CPT-4 22473 Sep 27, 2015 Results No Known Results Immunizations Vaccine Administration Date Pneumo 13 (Prevnar)(child)(adult) Sep 27, 2015 Summary Purpose [employer] Submission
--- OUTSIDE RECORDS SUMMARY | 2017-03-28 15:35 | XMS REPORT ---
Author Author Carmelina Lara [facility] [employer] Address Unknown Phone Unavailable Care Team Providers Care Corporate Security Officer Name Role Phone Carmelina Lara CP Unavailable Allergies No Known Allergies Problems Problem Type Condition Code Onset Dates Condition Status Problem Other and unspecified hyperlipidemia 272.4 Active Problem Atherosclerotic heart disease of [place] coronary artery without angina pectoris I25.10 Active Problem Coronary atherosclerosis of [place] coronary artery 414.01 Active Problem Essential (primary) hypertension I10 Active Problem Other hyperlipidemia E78.4 Active Medications Medication Code System Code Instructions Start Date End Date Status Dosage Metoprolol Tartrate [facility] [address]-50 100 MG Orally Once a day 1 tablet Ranitidine HCl [facility] [address]-71 300 MG Orally Twice a day Sep 13, 2015 1 tablet Results No Known Results Summary Purpose [employer] Submission
--- OUTSIDE RECORDS SUMMARY | 2017-03-28 15:35 | XMS REPORT ---
Author Author Brian Gibbons Organization [employer] Address Unknown Phone Unavailable Care Team Providers Care Drywall Installer Name Role Phone Brian Gibbons CP Unavailable [...] 272.4 Active Problem Atherosclerotic heart disease of [place] coronary artery without angina pectoris I25.10 Active Problem Mixed hyperlipidemia E78.2 Active Problem Coronary atherosclerosis of [place] coronary artery 414.01 Active Medications No Known Medications Results No Known Results Summary Purpose [employer] Submission
--- OUTSIDE RECORDS SUMMARY | 2017-03-28 15:35 | XMS REPORT ---
Author Author Brian Gibbons Organization [employer] Address Unknown Phone Unavailable Care Team Providers Care Bariatric Physician Name Role Phone Brian Gibbons CP Unavailable [...] 272.4 Active Problem Atherosclerotic heart disease of [place] coronary artery without angina pectoris I25.10 Active Problem Mixed hyperlipidemia E78.2 Active Problem Coronary atherosclerosis of [place] coronary artery 414.01 Active Medications Medication Code System Code Instructions Start Date End Date Status Dosage Requip [facility] [address]-38 2 MG Orally Three times a day 1 tablet Results No Known Results Summary Purpose [employer] Submission
--- OUTSIDE RECORDS SUMMARY | 2017-03-28 15:35 | XMS REPORT ---
Author Author Brian Gibbons Organization [employer] Address Unknown Phone Unavailable Care Team Providers Care Net Mvc Developer Name Role Phone Brian Gibbons CP Unavailable Allergies No Known Allergies Problems Problem Type Condition Code Onset Dates Condition Status Assessment Essential (primary) hypertension I10 Active Problem Coronary atherosclerosis of [place] coronary artery 414.01 Active Problem Other and unspecified hyperlipidemia 272.4 Active Problem Mixed hyperlipidemia E78.2 Active Problem Other hyperlipidemia E78.4 Active Assessment Mixed hyperlipidemia E78.2 Active Problem Atherosclerotic heart disease of [place] coronary artery without angina pectoris I25.10 Active Problem Essential (primary) hypertension I10 Active Medications Medication Code System Code Instructions Start Date End Date Status Dosage Brovana [facility] [address]-08 15 MCG/2ML Inhalation Twice a day 2 ml Pravastatin Sodium [facility] [address]-16 40 MG Orally Once a day 1 tablet Metoprolol Succinate ER [facility] [address]-36 100 MG Orally Once a day 1 tablet Ranitidine HCl [facility] [address]-79 300 MG Orally Twice a day Sep 13, 2015 1 tablet Lisinopril [facility] [address]-74 5 MG Orally Once a day 1 tablet Colace [facility] [address]-47 50 MG Orally Once a day 2 capsule as needed Albuterol Sulfate HFA [facility] [address]-55 108 (90 Base) MCG/ACT Inhalation every 4 hrs 2 puffs as needed Requip [facility] [address]-13 2 MG Orally Three times a day 1 tablet 1 to 3 hours before bedtime Aspir-81 [facility] [address]-91 81 MG Orally Once a day 1 tablet Gabapentin [facility] [address]-70 300 MG Orally daily 1 capsule Calcium + D [facility] [address]-21 600-200 MG-UNIT Orally Once a day 4 tablet with food Procedures Procedure Coding System Code Date COMPREHENSIVE METABOLIC PANEL CPT-4 21987 Nov 17, 2015 TSH CPT-4 79582 Nov 17, 2015 COMPLETE CBC W/AUTO DIFF WBC CPT-4 92549 Nov 17, 2015 MICROALBUMIN- MICRO ALB/CREAT RATIO CPT-4 46471 Nov 17, 2015 CREATININE-MICROALB/CREAT RATION URINE [facility]-4 07193 Nov 17, 2015 URINALYSIS WITH MICROSCOPIC [facility]-4 06934 Nov 17, 2015 Results Name Result Date Reference Range Unit Abnormality Flag Comprehensive Metabolic Panel (CMP) ----Alkaline Phosphatase 85 [id number] 40-150 U/L ----Bilirubin Total 0.4 12564856 0.2-1.2 mg/dL ----Creatinine 1.03 47712938 0.57-1.11 mg/dL ----Calcium 9.9 32658438 8.9-10.5 mg/dL ----Sodium 140 96777900 135-144 mEq/L ----Globulin 2.2 92614073 1.8-4.0 g/dL ----Potassium 4.5 14826797 3.5-5.2 mEq/L ----Anion Gap 8 33237441 3-20 ----Chloride 105 41862413 99-111 mEq/L ----AST (SGOT) 17 79098870 5-34 U/L ----CO2 27 46866944 22-31 mEq/L ----Glucose 106 04886952 70-99 mg/dL H ----Albumin 4.2 13274847 3.4-4.8 g/dL ----ALT (SGPT) 19 70497405 0-55 U/L ----BUN 16 60767254 10-20 mg/dL ----Protein 6.4 05417954 6.2-8.1 g/dL TSH ----TSH 1.62 02125901 0.35-4.94 uIU/mL eGFR ----eGFR 53 55877744 >60 mL/min * CBC With Platelet and Differential ----MCHC 32.6 05703040 32.0-36.0 g/dL ----MCH 28.2 53811377 27.0-32.0 pg ----MPV 11.2 73217105 8.8-14.8 fL ----RDW 14.2 28954410 11.5-14.5 % ----Eosinophils 5 42727160 0-4 % H ----Basophils 0 14074000 0-2 % ----Immature Granulocytes 0.3 13814581 0.0-1.0 % ----Absolute Neutrophils 3.95 09122129 1.90-7.00 10*3 ----Platelet Count 212 [id number] 150-400 K/uL ----Absolute Eosinophils 0.37 49115172 0.00-0.50 10*3 ----HCT 43.6 09150536 37.0-47.0 % ----Absolute Basophils 0.03 33885276 0.00-0.20 10*3 ----MCV 86.5 94177609 82.0-99.0 fL ----RBC 5.04 23294983 4.00-5.20 10*6/uL ----Absolute Lymphocytes 1.88 29948674 0.80-3.30 10*3 ----Absolute Monocytes 0.55 43372115 0.30-1.00 10*3 ----HGB 14.2 60538941 12.0-16.0 g/dL ----Monocytes 8 91036584 4-11 % ----WBC 6.8 31937044 4.8-10.8 K/uL ----Neutrophils 58 36673225 51-75 % ----Lymphocytes 28 10344826 20-46 % Micro Albumin/Creatinine Ratio, Urine ----Alb/Creat Ratio, Urine NA [id number] 0.0-29.0 mg/g ----Albumin mg/dL, Urine <0.5 66834481 0.0-1.7 mg/dL ----Creatinine mg/dL, Urine 34 66042541 mg/dL Urinalysis with Microscopic ----Glucose, Urine Negative 97742635 Negative ----Color Yellow 15651789 ----Blood Negative 70945353 Negative ----Ketones Negative 78851684 Negative ----Nitrites Negative 41987852 Negative ----Protein Negative 50152465 Negative ----Specific [place] 1.010 20768656 1.003-1.030 ----Bilirubin Negative 29463644 Negative ----pH 5.5 24283014 5.0-8.0 ----Leukocyte Esterase Negative 50079610 Negative ----Urobilinogen 0.2 20151117 <1.0 mg/dL ----WBC, Urine 0-2 67750197 0-4 /HPF ----RBC, Urine 0-4 80621703 0-4 /HPF ----Appearance Clear [id number] ----Epithelial Cells 0-2 88638277 /HPF Summary Purpose [employer]ClinicalWorks Submission
[2017-03-28 15:40] VITALS: TEMP 98.5; Ht 162.6 cm; Wt 80.0 kg
[2017-03-28] MEDS ORDERED: CALC-727 PO (16:02)
[2017-03-28] MEDS ORDERED: CITA40TA6 PO (16:05)
[2017-03-28] MEDS ORDERED: MECL-103 PO (16:08)
[2017-03-28] MEDS ORDERED: FURO40TA5 PO (16:08)
--- OUTSIDE RECORDS SUMMARY | 2017-03-28 16:11 | XMS REPORT | Continuity of Care Document ---
Author Author [facility] Organization [facility] Address Unknown Phone Unavailable Allergies Medications Problems Procedures Results Encounters ACCT No. Visit Date/Time Discharge Status Pt. Type Provider Facility Loc./Unit Complaint [id number] 11/22/2013 13:59:00 11/22/2013 23 :59:59 CLS Outpatient
--- NOTE | 2017-03-28 16:17 | NUR ---
PROVIDER DR MIRANDA AT BEDSIDE
--- NOTE | 2017-03-28 16:20 | ERPDOC ---
Departure Disposition Decision Date: March 28, 2017 Disposition Decision Time: 16:20 Disposition: 01 DISCHARGED HOME, SELF-CARE Impression Impression Impression: Primary Impression: Tooth fracture Encounter type: initial encounter Fracture type: closed Qualified Codes: S02.5XXA - Fracture of tooth (traumatic), initial encounter for closed fracture Severity: Moderate Condition: Improved Seen By: Physician only Referrals: JOSEFINA OMALLEY DO (Family) 2 Weeks YOUR DENTIST 2 Days Patient Instructions: Acute Dental Trauma (ED) Problems/Meds/Labs Reviewed?: Yes Medications reviewed and manag: Yes Additional Instructions: You have broken your teeth. You need to be seen by a dentist to fix this. Take Naproxen, up to 500mg twice a day for pain. Avoid hot/cold foods/drinks. Take the norco as needed for pain at night. Follow up care ordered?: Yes Mental Status: Alert, Oriented Scripts Clindamycin HCl (Clindamycin HCl) 150 Mg Capsule 1 CAP PO QID for 14 Days, #56 CAP TAKE WITH A FULL GLASS OF WATER TO AVOID ESOPHAGEAL IRRITATION. Prov: MARCHNIKOSINGH M DO 03/28/17 Hydrocodone/Acetaminophen (Oran 5-325 Tablet) 5-325 Tablet 1 TAB PO Q6HR Y for PAIN, #20 TAB 0 Refills Prov: MARCHSINGH DO 03/28/17 HPI General Chief Complaint: Toothache Stated Complaint: TOOTH PAIN Time Seen by Provider: 16:05 Source: patient Exam Limitations: no limitations HPI Dental Initial Comments 71yo woman presents to the ER tonight with dental pain. Pt had dental caries repaired 7 days ago; had pain in her left front mandibular incisor 3 days ago. Pain has been progressive ever since; no relief with tylenol. Pt is getting ready to leave the country and her dentist is not open today. Occurred At: home Onset: Gradual, Getting worse Duration: other Pain Scale: Now & Worst: 5/10 Severity: moderate Location: L lower, R lower 1 - Fracture 2 - Fracture 3 - Gum retraction 4 - Pain 5 - Pain Problem: fractured tooth Allergies: Coded Allergies: mometasone furoate (Verified Adverse Reaction, Unknown, NAUSEA, 06/21/16) Past History Past Medical History Metabolic: hypertension ENMT: dental problems, sleep apnea Cardiac: CAD, VA Female: , miscarriage, para Musculoskeletal: back pain Surgical History General: appendix, back Cardiac: cardiac cath, cardiac stent Reproductive/: other Family History Family PMH: FOUND: CAD Vaccines Hx Influenza Vaccination: Yes (FALL 2014) Hx Pneumococcal Vaccination: Yes (WITHIN LAST 5 YEARS) Social History Does patient use chewing tobac: No # of Packs/Tins per Day: 1 # of Years: 40 Substance Use Type: does not use Alcohol Intake: none Review of Systems ENMT Teeth: pain All other Systems All Other Systems: Reviewed and Negative Exam General General Nourishment: well nourished, well developed, appears stated age, no acute distress, adult, obese General Body Habitus: well groomed Vital Signs: RN Vital Signs have been reviewed: Yes, Temperature: 98.5, Source : Oral, Heart Rate: 57, Respiratory Rate: 16, BP: 154/72, Pulse Oximetry: 97 Height (Feet): 5 Height (Inches): 4.00 [employer] Dental Face: NOT FOUND: bruising, erythema, swelling Jaw: NOT FOUND: asymmetry Glands: NOT FOUND: L parotid swollen, R parotid swollen Ducts: NOT FOUND: L Flynn's blocked, R [place]'s blocked Lips: NOT FOUDN: laceration, swelling Gums: moist, pink Tongue: NOT FOUND: geographic, swelling Teeth: fractures, missing, NOT FOUND: caries Pharynx: NOT FOUND: erythema, exudate Tonsils: 1+, NOT FOUND: erythema, exudate Neck: NOT FOUND: R anterior adenopathy, R posterior adenopathy Neurologic RN Documented GCS Eye Opening: Verbal: Motor: Total: Supervisory Exam Head: atraumatic Eyes: PERRL Nares: no exudate Neck: trachea midline Chest: symmetric Abdomen: non-distended Musculoskeletal: no deformity or atrophy Neurological: no abnormal movements Skin: pink, dry Psychological: alert, appropriate Differential Diagnoses Considering: Gingival Abscess, Caries, Impacted Tooth, Lost Filling, Tooth Avulsion/Extrusion, Tooth Fracture Progress Results/Orders Orders Procedure Category Date Status Time Clindamycin (Cleocin) PHA 03/28/17 Complete 16:30 Hydrocodone/Acetaminophen PHA 03/28/17 Complete (Oran 5/325) 16:30 Medications Current ED Medications Clindamycin HCl (Cleocin) 150 mg O ONCE PO Last administered on 03/28/17t 16: 30; Start 03/28/17 at 16:30; Stop 03/28/17 at 16:31; Status DC Acetaminophen/ Hydrocodone Bitart (Oran 5/325) 1 tab O ONCE PO Last administered on 03/28/17t 16:30; Start 03/28/17 at 16:30; Stop 03/28/17 at 16:31 ; Status DC Progress Progress Pts b/l middle mandibular incisors are fractured. Discussed risk of dental abscess and efficacy of NSAIDs over tylenol for pain control. Will need to see a dentist for definitive care. Pt stated that she is going out of country on Friday. Explained that only a dentist can provide definitive care and explained the risks of not repairing the teeth. Pt voiced understanding of dx, prognosis, tx, and need for f/u. Will d/c with atbx, pain control, and instructions to f/u with dentist. SINGH MIRANDA DO March 28, 2017 16:20
[2017-03-28] MEDS ORDERED: HYDR-4246 PO (16:24)
[2017-03-28] MEDS ORDERED: CLIN-89 PO (16:24)
[2017-03-28] MEDS ORDERED: HYDROCODONE/APAP 5 mg/325 mg TABLET PO ONE (16:30)
[2017-03-28] MEDS ORDERED: CLINDAMYCIN 150 MG CAPSULE PO ONE (16:30)
[2017-03-28 16:32] VITALS: BP 135/65; PULSE 62; RESP 19; O2SAT 94
== END 2017-03-28 16:32 | disposition home or self-care (01) ==
LOC: ED 15:29
DX: S02.5XXA Fracture of tooth (traumatic), initial encounter for closed fracture (principal); X58.XXXA Exposure to other specified factors, initial encounter; Y93.9 Activity, unspecified; Y92.009 Unspecified place in unspecified non-institutional (private) residence as the place of occurrence of the external cause; Y99.8 Other external cause status
CPT/HCPCS: 99283; A9270